=== PATIENT | female | born 1970 | race Hispanic/Latino ===

== ENCOUNTER 2020-04-05 16:52 | Emergency (ER) | payer BC ==
[2020-04-05] MEDS ORDERED: ONDANSETRON ODT 4 MG TAB ONE (17:44)
[2020-04-05 18:04] LABS: RAPID GROUP A STREP NEGATIVE (NEGATIVE)
== END 2020-04-05 19:27 | disposition home or self-care (01) ==
LOC: EDH 16:52
DX: R05 Cough (principal); R50.81 Fever presenting with conditions classified elsewhere; Z20.828 Contact with and (suspected) exposure to other viral communicable diseases; J02.9 Acute pharyngitis, unspecified; Z88.0 Allergy status to penicillin; Z88.6 Allergy status to analgesic agent; Z90.710 Acquired absence of both cervix and uterus; Z98.890 Other specified postprocedural states
CPT/HCPCS: 36415; 87804 ×2; 87880; 99283; U0003

== ENCOUNTER 2022-03-12 15:20 | Emergency (ER) | payer BC ==
[~2022-03-12] VITALS: Ht 165.1 cm; Wt 78.5 kg
[2022-03-12] MEDS ORDERED: 0.9%NACL 1000ML 1,000 ML IV ONE (16:00)
[2022-03-12] MEDS ORDERED: ONDANSETRON 4MG INJ IVP ONE (16:00)
[2022-03-12] MEDS ORDERED: FAMOTIDINE 20MG VIAL IV ONE (16:00)
[2022-03-12] MEDS ORDERED: LIDOCAINE HCL 2% VISCOUS 15 ML UDCUP PO ONE (16:00)
[2022-03-12] MEDS ORDERED: DICYCLOMINE HCL 10 MG/5 ML ML PO ONE (16:00)
[2022-03-12] MEDS ORDERED: MAG/ALUM/SIMETH 30 ML UDCUP PO ONE (16:00)
[2022-03-12 16:12] LABS: BASOPHILS % (AUTO) 2.2 % (0.0-5.0); EOSINOPHILS % (AUTO) 3.3 % (0.0-8.0); HEMATOCRIT 40.7 % (36-48); LYMPHOCYTES % (AUTO) 41.3 % (21.0-51.0); MEAN CORPUSCULAR HEMOGLOBIN 28.9 pg (27.0-33.0); MEAN CORPUSCULAR HGB CONC 32.2 g/dL (32.0-36.0); MEAN CORPUSCULAR VOLUME 89.6 fL (79-99); MONOCYTES % (AUTO) 9.5 % (3.0-13.0); NEUTROPHILS % (AUTO) 43.5 % (40.0-77.0); PLATELET COUNT (AUTO) 280 K/uL (130-400); RED BLOOD CELL COUNT(AUTO) 4.54 MIL/uL (4.00-5.50); RED CELL DISTRIBUTION WIDTH 13.1 % (11.0-15.5); WHITE BLOOD COUNT (AUTO) 4.6 K/uL (4.8-10.8)
[2022-03-12 16:16] LABS: CREATININE 0.6 mg/dL (0.5-1.5)
[2022-03-12 16:25] LABS: ALBUMIN 3.9 g/dL (3.5-5.0); BILIRUBIN,TOTAL 0.4 mg/dL (0.2-1.0); TOTAL PROTEIN, SERUM 7.3 g/dL (6.0-8.3)
[2022-03-12 16:44] LABS: HCG,QUAL RESULT NEGATIVE (NEGATIVE)
[2022-03-12 16:45] LABS: APPEARANCE,URINE Clear (CLEAR); BILIRUBIN,URINE Negative (NEGATIVE); COLOR,URINE Yellow (YELLOW); GLUCOSE, URINE (UA) Negative (NEGATIVE); KETONES,URINE Negative (NEGATIVE); LEUKOCYTE ESTERASE ,URINE Negative (NEGATIVE); NITRATE,URINE Negative (NEGATIVE); OCCULT BLOOD,URINE Negative (NEGATIVE); PH,URINE 7.5 (5.0-8.0); PROTEIN,URINE Negative (NEGATIVE); UROBILINOGEN,URINE 0.2 mg/dL (0.2-1.0)
[2022-03-12] MEDS ORDERED: DICY20TA2 PO (17:01)
[2022-03-12] MEDS ORDERED: FAMO-136 PO (17:01)
[2022-03-12] MEDS ORDERED: ONDA4TAB10 PO (17:01)
[2022-03-12 17:52] VITALS: BP 139/70
== END 2022-03-12 17:54 | disposition home or self-care (01) ==
LOC: EDH 15:20
DX: K80.20 Calculus of gallbladder without cholecystitis without obstruction (principal); R11.2 Nausea with vomiting, unspecified; K21.9 Gastro-esophageal reflux disease without esophagitis; Z90.710 Acquired absence of both cervix and uterus
CPT/HCPCS: 36415; 71045; 76705; 80053; 81003; 81025; 83690; 84484; 85025; 96374; 96375; 99284; J2405; J3490; J7030